=== PATIENT | male | born 1990 | race Caucasian/White ===

== ENCOUNTER 2021-03-29 14:46 | Inpatient (IN) | payer OTHER ==
[~2021-03-29] VITALS: Ht 180.3 cm; Wt 85.8 kg
[2021-03-29 15:50] LABS: HEMATOCRIT 47.6 % (42.0-52.0); HEMOGLOBIN 15.8 g/dl (13.5-17.5); MEAN CORPUSCULAR HEMOGLOBIN 29.5 pg (27.0-33.0); MEAN CORPUSCULAR HGB CONC 33.2 g/dl (32.0-36.5); MEAN CORPUSCULAR VOLUME 88.8 fl (80.0-96.0); PLATELET COUNT, AUTOMATED 301 10^3/uL (150-450); RED BLOOD COUNT 5.36 10^6/uL (4.30-6.10); WHITE BLOOD COUNT 6.3 10^3/uL (4.0-10.0)
--- OUTSIDE RECORDS SUMMARY | 2021-03-29 16:06 | CCD ---
[facility] Address Unknown Phone Unavailable Support Name Relationship Address Phone [facility] Next Of Kin [address] [place] [address] Unavailable Re-disclosure Warning The records that you are about to access may contain information from federally-assisted alcohol or drug abuse programs. If such information is present, then the following federally mandated warning applies: This information has been disclosed to you from records protected by federal confidentiality rules (42 CFR part 2). The federal rules prohibit you from making any further disclosure of this information unless further disclosure is expressly permitted by the written consent of the person to whom it pertains or as otherwise permitted by 42 CFR part 2. A general authorization for the release of medical or other information is NOT sufficient for this purpose. The Federal rules restrict any use of the information to criminally investigate or prosecute any alcohol or drug abuse patient.The records that you are about to access may contain highly sensitive health information, the redisclosure of which is protected by Article 27-F of the [facility] Public Health law. If you continue you may have access to information: Regarding HIV / AIDS; Provided by facilities licensed or operated by the [facility] Office of Mental Health; or Provided by the [facility] Office for People With Developmental Disabilities. If such information is present, then the following [facility] mandated warning applies: This information has been disclosed to you from confidential records which are protected by state law. State law prohibits you from making any further disclosure of this information without the specific written consent of the person to whom it pertains, or as otherwise permitted by law. Any unauthorized further disclosure in violation of state law may result in a fine or penitentiary sentence or both. A general authorization for the release of medical or other information is NOT sufficient authorization for further disc losure. Medications No Information Insurance Providers Payer name Policy type / Coverage type Policy ID Covered green party ID Covered green party's relationship to cardoso Policy Cardoso Plan Information [facility] [id number] [facility] [id number] S [id number] Problems, Conditions, and Diagnoses No Information Surgeries/Procedures No Information Results No Information Social History No Information
[2021-03-29 16:20] LABS: AMPHETAMINES LEVEL URINE NEGATIVE (NEGATIVE); BARBITURATES URINE NEGATIVE (NEGATIVE); BENZODIAZEPINES URINE NEGATIVE (NEGATIVE); CANNABINOIDS URINE NEGATIVE (NEGATIVE); COCAINE METABOLITE URINE NEGATIVE (NEGATIVE); METHADONE URINE NEGATIVE (NEGATIVE); OPIATES URINE NEGATIVE (NEGATIVE); PHENCYCLIDINE URINE NEGATIVE (NEGATIVE)
[2021-03-29 16:30] LABS: ACETAMINOPHEN LEVEL < 2.0 UG/ML (10.0-30.0); ALBUMIN 4.1 GM/DL (3.2-5.2); ALT/SGPT 48 U/L (12-78); BILIRUBIN,DIRECT 0.1 MG/DL (0.0-0.2); BILIRUBIN,TOTAL 0.4 MG/DL (0.2-1.0); BLOOD UREA NITROGEN 13 MG/DL (7-18); CALCIUM LEVEL 9.2 MG/DL (8.5-10.1); CARBON DIOXIDE LEVEL 28 MEQ/L (21-32); CHLORIDE LEVEL 108 MEQ/L (98-107); CREATININE FOR GFR 1.06 MG/DL (0.70-1.30); ETHYL ALCOHOL (ETHANOL) < 0.003 % (0.000-0.010); GLOMERULAR FILTRATION RATE > 60.0 (>60); GLUCOSE, FASTING 97 MG/DL (70-100); POTASSIUM SERUM 4.3 MEQ/L (3.5-5.1); SALICYLATE LEVEL < 1.7 MG/DL (5.0-30.0); SODIUM LEVEL 141 MEQ/L (136-145); THYROID STIMULATING HORMONE 0.752 uIU/ML (0.358-3.740)
[2021-03-29] MEDS ORDERED: HOME MED LIST COMPLETE! XX SCH (17:50)
[2021-03-29 19:18] LABS: INFLUENZA A AMPLIFICATION NEGATIVE (NEGATIVE); INFLUENZA B AMPLIFICATION NEGATIVE (NEGATIVE)
[2021-03-29] MEDS ORDERED: MAALOX 30 ML SUSP *UDC PO PRN (20:30)
[2021-03-29] MEDS ORDERED: MOM 30ML SUSPENSION UDC PO PRN (20:30)
[2021-03-29] MEDS ORDERED: LORazepam 1 MG TAB PO PRN (20:30)
[2021-03-29] MEDS ORDERED: ACETAMINOPHEN TAB 650MG DOSE (2X325MG) PO PRN (20:30)
[2021-03-29 22:27] VITALS: BP 131/83
[2021-03-29] MEDS: traZODone 50 MG TAB PO PRN (22:43)
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
[2021-03-30 16:09] VITALS: BP 138/82
--- NOTE | 2021-03-30 20:14 | HPEPDOC ---
[facility] Medical History & Physical Date of Admission Mar 29, 2021 Date of Service: Mar 30, 2021 History and Physical CHIEF COMPLAINT: Medical health screening HISTORY OF PRESENT ILLNESS: Mr. Luna is a 31-year-old male who was in the inpatient mental health unit for suicidal ideation. Please see mental health history and physical for more information about suicidal ideation. When I saw patient, he feels well. He denied any fever or chills, chest pain, dyspnea, abdominal pain, diarrhea, or dysuria. He reports having a dry scratchy throat for about a week. He has an associated dry cough. It has been improving. Patient has no other questions or concerns. PAST MEDICAL HISTORY: 1. History of bronchitis and pneumonia in the past 2. Otherwise patient denies any past medical history and does not take med ications regularly PAST SURGICAL HISTORY: Denies any past surgical history SOCIAL HISTORY: Tobacco use: Current smoker, 1 pack/day ETOH: Drinks alcohol on the weekends. 5 to 6 cans. Illicit drug use: Denies FAMILY HISTORY: Denies any known medical history in parents ALLERGIES: Please see below. REVIEW OF SYSTEMS: CONSTITUTIONAL: Denies any fever or chills. Denies lightheadedness or dizziness. ENT: Reports a dry scratchy throat which has been improving. RESPIRATORY: Denies shortness of breath. Reports dry cough. CARDIOVASCULAR: Denies chest pain. GASTROINTESTINAL: Denies abdominal pain. Denies diarrhea. GENITOURINARY: Denies dysuria. CUTANEOUS: Denies rashes. MUSCULOSKELETAL: Denies muscle weakness. NEUROLOGICAL: Denies neuropathy. PSYCHOLOGICAL: Denies anxiety. Denies depression. HOME MEDICATIONS: Please see below. PHYSICAL EXAMINATION: VITAL SIGNS: Temperature 98.2, pulse 65, respiratory rate 18, blood pressure 138/82, pulse oximetry 99% on room air. GENERAL: Comfortable, in no apparent distress. HEENT: Head normocephalic/atraumatic, EOMI, sclera clear. NECK: Supple. RESPIRATORY: Lungs clear to auscultation bilaterally, no rales, wheeze or rhonchi. CARDIOVASCULAR: Regular rate and rhythm. ABDOMEN: Soft, nontender, no guarding or rebound tenderness. Normal bowel sounds. MUSCLE SKELETAL: Muscle strength 5/5 in all extremities. NEUROLOGICAL: CN 312 grossly intact, no focal deficits noted. PSYCHOLOGICAL: Normal mood and affect LABORATORY DATA: See below. IMAGING: None MICROBIOLOGY: Please see below. ASSESSMENT and PLAN: 1. Suicidal ideation Being managed in the inpatient mental health unit 2. Tobacco use disorder Patient may speak with his PCP about smoking cessation Thank you for consulting us. We will sign off at this time. If there is any further questions or concerns, please do not hesitate to reconsult us. Vital Signs Vital Signs Date Time Temp Pulse Resp B/P (MAP) Pulse Ox O2 Delivery O2 Flow Rate FiO2 03/30/21 16:09 98.2 65 18 138/82 (100) 99 Room Air Home Medications No Active Prescriptions or Reported Meds Allergies Coded Allergies: No Known Allergies (Unverified , 03/29/21) A-FIB/CHADSVASC A-FIB History Current/History of A-Fib/PAF?: No EDDIE BURCIAGA DO Mar 30, 2021 20:14
[2021-03-30] MEDS: traZODone 50 MG TAB PO PRN (20:32)
[2021-03-31 06:29] VITALS: BP 133/79
[2021-03-31 16:21] VITALS: BP 128/65
[2021-03-31] MEDS: traZODone 50 MG TAB PO PRN (19:57)
[2021-04-01 07:02] VITALS: BP 124/84
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
[2021-04-01 16:13] VITALS: BP 128/60
[2021-04-01 19:59] VITALS: BP 128/60
[2021-04-01] MEDS: traZODone 50 MG TAB PO PRN (20:18)
[2021-04-02 06:47] VITALS: BP 125/75
[2021-04-02] MEDS ORDERED: NICO21DI37 TD (08:12)
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
== END 2021-04-02 11:38 | disposition home or self-care (01) | DRG 885 ==
LOC: M ED 14:46 → M ED INP 20:26 → M PSY 22:00
PROVIDERS: ADMIT Psychiatry & Neurology Psychiatry; ATTEND Psychiatry & Neurology Psychiatry
DX: F32.1 Major depressive disorder, single episode, moderate (principal); R45.851 Suicidal ideations; F41.9 Anxiety disorder, unspecified; F43.10 Post-traumatic stress disorder, unspecified; F17.210 Nicotine dependence, cigarettes, uncomplicated; F10.10 Alcohol abuse, uncomplicated; Z91.51 Personal history of suicidal behavior; Z62.810 Personal history of physical and sexual abuse in childhood; Z62.811 Personal history of psychological abuse in childhood; Z91.82 Personal history of military deployment; Z63.5 Disruption of family by separation and divorce; Z20.822 Contact with and (suspected) exposure to COVID-19

== ENCOUNTER → 2021-12-17 | Outpatient (REF) ==
[~2021-12-17] MED LIST: NICO21DI37 TD
== END ==
LOC: M PLAIMG 11:16
PROVIDERS: ATTEND Internal Medicine
DX: R06.02 Shortness of breath (principal)